=== PATIENT | female | born 1990 | race Caucasian/White ===

== ENCOUNTER 2020-03-31 20:37 | Inpatient (IN) | payer OTHER ==
[2020-03-31] MEDS ORDERED: Zofran 4 MG/2 ML VIAL IV ONE (20:40)
[2020-03-31] MEDS ORDERED: Hydromorphone 1 mg/ml Ampule IV ONE ×2 (20:42→22:04)
[2020-03-31] MEDS ORDERED: PERCOCET TABLET 5/325MG PO STA (20:43)
[2020-03-31] MEDS ORDERED: TORAdol 30 mg Injection IV ONE (20:44)
--- NOTE | 2020-03-31 20:44 | ERPHSYRPT ---
- History of Present Illness Time Seen by Provider: 03/31/20 20:40 Historian: patient, family Exam Limitations: no limitations Patient Subjective Stated Complaint: Chest pain Physician History: The patient is a 29-year-old female with a past medical history significant for recently diagnosed PE earlier today at [facility] who presents with a chief complaint of chest pain. Of note, the patient endorsed having shortness of breath for the last couple days and pleuritic chest pain that started reportedly this morning which prompted her visit to the ED earlier today. She was diagnosed with a pulmonary embolism and discharged after her pain was controlled and prescribed apixaban which she reportedly took 10 mg this evening. Poorly received Dilaudid at the outside hospital ED which relieved her pain and was prescribed Percocet which she has not taken as of yet. According to the who accompanied her in the emergency department she was offered an admission but declined. She was taking control and reportedly had a long car ride from [place] to [place] which I think provoked the PE. The pain is described as a sharp pain located in the left side of her chest that is pleuritic constant and severe. Severity of Pain-Max: severe Severity of Pain-Current: severe Modifying Factors: Improves With: breathing. Worsens With: coughing Associated Symptoms: shortness of breath Aspirin Treatment Today: no aspirin today Allergies/Adverse Reactions: ceftriaxone sodium [From Rocephin] Allergy (Intermediate, Verified 03/31/20 20:39) Blisters meperidine HCl [From Demerol] Allergy (Intermediate, Verified 03/31/20 20:39) Hives topiramate [From Topamax] Adverse Reaction (Verified 03/31/20 20:39) TINGLING IN HANDS Home Medications: Apixaban [Eliquis 2.5 mg Tablet] 10 mg PO BID 04/01/20 [History] Irbesartan 150 mg [Avapro 150 MG] 150 mg PO DAILY 04/01/20 [History] Ketorolac Trometh 60 mg/2Ml [Toradol 60 mg/2 ml] 60 mg IM DAILY PRN 04/01/20 [History] Oxycodone / APAP 10/325 mg [Oxycodone-Acetaminophen 10-325] 1 tab PO Q6H PRN 04/01/20 [History] Tizanidine HCl 4 mg [Zanaflex 4 MG] 4 mg PO BID 04/01/20 [History] Tramadol HCl 50 mg [Ultram 50 mg] 50 mg PO QID 04/01/20 [History] Hx Tetanus, Diphtheria Vaccination/Date Given: Yes Hx Influenza Vaccination/Date Given: Yes Hx Pneumococcal Vaccination/Date Given: No Travel Risk - International Travel Have you traveled outside of the country in past 3 weeks: No - Coronavirus Screening Are you exhibiting any of the following symptoms?: Yes Symptoms: Shortness of Breath (Due to PE) Close contact with a COVID-19 positive Pt in past 14-21 Days: No - Review of Systems Constitutional: No No Symptoms Eyes: No Symptoms Ears, Nose, & Throat: No Symptoms Respiratory: Dyspnea, Dyspnea on Exertion (LUZ), No Cough Cardiac: Chest Pain Abdominal/Gastrointestinal: No Abdominal Pain, No Nausea, No Vomiting Genitourinary Symptoms: No Symptoms Musculoskeletal: No Symptoms Skin: No Symptoms Neurological: No Symptoms Psychological: No Symptoms Endocrine: No Symptoms Hematologic/Lymphatic: No Symptoms Immunological/Allergic: No Symptoms All Other Systems: Reviewed and Negative - Past Medical History Pertinent Past Medical History: Yes Neurological History: Migraines ENT History: No Pertinent History Cardiac History: No Pertinent History Respiratory History: No Pertinent History Endocrine Medical History: No Pertinent History Musculoskeletal History: No Pertinent History GI Medical History: No Pertinent History History: No Pertinent History Psycho-Social History: Anxiety Female Reproductive Disorders: No Pertinent History - Past Surgical History Past Surgical History: Yes Neuro Surgical History: No Pertinent History Cardiac: No Pertinent History Respiratory: No Pertinent History Gastrointestinal: Cholecystectomy Genitourinary: No Pertinent History Musculoskeletal: No Pertinent History Female Surgical History: No Pertinent History Other Surgical History: TONSILLECTOMY AND ADENOIDECTOMY - Social History Smoking Status: Never smoker Exposure to second hand smoke: Yes Drug Use: none Patient Lives Alone: No - Nursing Vital Signs Nursing Vital Signs: Initial Vital Signs Temperature 98.1 F 03/31/20 20:37 Pulse Rate 116 H 03/31/20 20:37 Respiratory Rate 26 H 03/31/20 20:37 Blood Pressure 142/111 03/31/20 20:37 O2 Sat by Pulse Oximetry 97 03/31/20 20:37 Pain Scale Pain Intensity 4 - Physical Exam General Appearance: anxiety, other (The patient was crying and gaurding the left axillary aspect of her chest) Eye Exam: PERRL/EOMI, eyes nml inspection Ears, Nose, Throat Exam: normal ENT inspection Neck Exam: normal inspection, non-tender, supple Respiratory Exam: normal breath sounds, lungs clear, airway intact, diminished breath sounds (Patient was splinting due to pain and did not want to take a deep breath), No chest tenderness, No respiratory distress Cardiovascular Exam: regular rate/rhythm, normal heart sounds, normal peripheral pulses, capillary refill <2 sec, No murmur, No friction rub, No gallop, No tachycardia, No edema Pelvic Exam: not done Rectal Exam: deferred Back Exam: normal inspection, normal range of motion Extremity Exam: normal inspection Neurologic Exam: alert, oriented x 3, cooperative Skin Exam: normal color, warm, dry, No rash, No petechiae SpO2 Interpretation: normal O2 Delivery: Room Air - Course Nursing assessment & vital signs reviewed: Yes EKG Interpreted by Me: RATE, Sinus Rhythm, NORMAL AXIS, NORMAL INTERVALS, NORMAL QRS, Other (No evidence of STEMI or myocardial ischemia or injury pattern) Ordered Tests: Active Orders 24 hr Category Date Time Status Up Ad Kristie TOLERATED Activity 03/31/20 23:35 Active Code Status Order ROUTINE Care 03/31/20 23:35 Active EKG-ER Only STAT Care 03/31/20 20:40 Completed IV Insertion ROUTINE Care 03/31/20 23:[address] in Observation ROUTINE Care 03/31/20 23:35 Active Pulse Oximetry (ED) STAT Care 03/31/20 20:40 Completed House Regular Diet Diet 03/31/20 Breakfast Active BMP AM.LAB Lab 04/01/20 04:00 Ordered BMP Stat Lab 03/31/20 21:03 Completed CBC AM.LAB Lab 04/01/20 04:00 Ordered CBC W DIFF Stat Lab 03/31/20 21:03 Completed NT PRO BNP Routine Lab 03/31/20 21:03 Completed TROPONIN Q3H Lab 03/31/20 21:03 Completed Pulse Oximetry ROUTINE RT 03/31/20 23:35 Active Medication Summary Generic Name Dose Route Start Last Admin Trade Name Freq PRN Reason Stop Dose Admin Apixaban 10 mg 04/01/20 10:00 Eliquis 2.5 Mg Tablet PO 05/01/20 09:59 BID YADIRA Hydromorphone HCl 0.5 mg 03/31/20 23:35 Hydromorphone 1 Mg/Ml Ampule IV 04/05/20 23:34 STAT PRN PAIN Hydromorphone HCl 0.5 mg 04/01/20 00:20 04/01/20 00:42 Dilaudid 2 Mg Injection IV 04/06/20 00:19 0.5 mg Q2H PRN Administration PAIN Hydromorphone HCl 1 mg 04/01/20 00:55 Dilaudid 2 Mg Injection IV 04/06/20 00:54 Q2H PRN PAIN Hydromorphone HCl 0.5 mg 04/01/20 00:55 04/01/20 01:06 Dilaudid 2 Mg Injection IV 04/01/20 00:56 0.5 mg STAT STA Administration Oxycodone/Acetaminophen 2 tab 03/31/20 23:35 Percocet Tablet 5/325mg PO 04/05/20 23:34 Q6H PRN PRN PAIN Discontinued Medications Generic Name Dose Route Start Last Admin Trade Name Freq PRN Reason Stop Dose Admin Hydromorphone HCl 1 mg 03/31/20 20:42 03/31/20 20:48 Hydromorphone 1 Mg/Ml Ampule IV 03/31/20 20:43 1 mg STAT ONE Administration Hydromorphone HCl Confirm 03/31/20 20:47 Hydromorphone 1 Mg/Ml Ampule Administered 03/31/20 20:48 Dose 1 mg .ROUTE .STK-MED ONE Hydromorphone HCl 0.5 mg 03/31/20 22:04 03/31/20 22:41 Hydromorphone 1 Mg/Ml Ampule IV 03/31/20 22:05 0.5 mg STAT ONE Administration Hydromorphone HCl Confirm 03/31/20 22:39 Hydromorphone 1 Mg/Ml Ampule Administered 03/31/20 22:40 Dose 1 mg .ROUTE .STK-MED ONE Ketorolac Tromethamine 15 mg 03/31/20 20:44 03/31/20 20:47 Toradol 30 Mg Injection IV 03/31/20 20:45 15 mg STAT ONE Administration Ketorolac Tromethamine Confirm 03/31/20 20:46 Toradol 30 Mg Injection Administered 03/31/20 20:47 Dose 30 mg .ROUTE .STK-MED ONE Ondansetron HCl 4 mg 03/31/20 20:40 03/31/20 20:47 Zofran 4 Mg/2 Ml Vial IV 03/31/20 20:41 4 mg STAT ONE Administration Ondansetron HCl Confirm 03/31/20 20:46 Zofran 4 Mg/2 Ml Vial Administered 03/31/20 20:47 Dose 4 mg .ROUTE .STK-MED ONE Oxycodone/Acetaminophen 1 tab 03/31/20 20:43 03/31/20 20:48 Percocet Tablet 5/325mg PO 03/31/20 20:44 1 tab STAT STA Administration Oxycodone/Acetaminophen Confirm 03/31/20 20:46 Percocet Tablet 5/325mg Administered 03/31/20 20:47 Dose 1 tab .ROUTE .STK-MED ONE Lab/Rad Data: Laboratory Result Diagrams 03/31/20 21:03 03/31/20 21:03 Laboratory Results 03/31/20 03/31/20 03/31/20 Range/Units 21:03 21:03 21:03 WBC 17.6 H (4.0-10.5) K/mm3 RBC 4.82 (4.1-5.4) M/mm3 Hgb 13.1 (12.0-16.0) gm/dl Hct 41.7 (35-47) % MCV 86.5 (78-100) fl MCH 27.2 (26-32) pg MCHC 31.4 L (32-36) g/dl RDW 12.6 (11.5-14.0) % Plt Count 273 (150-450) K/mm3 MPV 10.7 (7.5-11.0) fl Gran % 76.1 H (36.0-66.0) % Eos # (Auto) 0.53 H (0-0.5) Absolute Lymphs (auto) 2.23 (1.0-4.6) Absolute Monos (auto) 1.42 H (0.0-1.3) Lymphocytes % 12.6 L (24.0-44.0) % Monocytes % 8.1 (0.0-12.0) % Eosinophils % 3.0 (0.00-5.0) % Basophils % 0.2 (0.0-0.4) % Absolute Granulocytes 13.41 H (1.4-6.9) Basophils # 0.04 (0-0.4) Sodium 137 (137-145) mmol/L Potassium 3.8 (3.5-5.1) mmol/L Chloride 102 (98-107) mmol/L Carbon Dioxide 25 (22-30) mmol/L Anion Gap 13.7 (5-15) MEQ/L BUN 14 (7-17) mg/dL Creatinine 0.68 (0.52-1.04) mg/dL Estimated GFR > 60.0 ML/MIN Glucose 115 H (74-106) mg/dL Calcium 9.5 (8.4-10.2) mg/dL Troponin I < 0.012 (0.000-0.034) ng/mL NT-Pro-B Natriuret Pep 179 (0-450) pg/mL - Progress Progress: improved Air Movement: good Progress Note: 03/31/20 21:46 Patient was reassessed to find that the pain medicines were making her much more comfortable and she was no longer tearful and able to participate in the HPI. Also, records are currently being faxed to and from [facility] which I am currently reviewing at this time. It appears she had a chest x-ray earlier today of the ribs and showed no evidence of a displaced rib fracture or pneumothorax. She underwent a CTA of her chest that demonstrated bilateral pulmonary emboli with evidence of infarction into the left lower lobe of her lung which is the greatest source of discomfort currently. It appears that she had a total of 2 mg of Dilaudid and 30 mg of Toradol and a milligram of lorazepam during her ED visit. Laboratory work-up was relatively benign and the patient appear to have an elevated d-dimer in addition to a negative test. Platelet count was 262 and her hemoglobin was noted to be 14.5 with a white blood cell count of 16.5. It appears that the patient was p rescribed apixaban and instructed to take 10 mg twice a day for 7 days and then 5 mg twice a day thereafter and she was prescribed Percocet 10/325 mg tablets and instructed to take 1 tablet every 6 hours as needed. The discharge diagnosis was pulmonary embolism with infarction. It was also noted the patient has some unspecified chronic pain syndrome. 03/31/20 21:[address] Coats now for admission for pain control. 04/01/20 02:16 The patient was admitted for observation for pain control. She does not meet modified Hestia criteria due to uncontrolled pain. Otherwise, she does not have a massive of submassive PE and her EKG showed no evidence of R heart strain. Remaining laboratory workup with reassuring cardiac markers as well. I suspected she can be discharged home once her pain is controlled with instructions to continue to apixaban and PCP f/u for her what is believed to be a provoked PE likely from a DVT of her lower extremity due to immobility/recent travel and being on OCP. Blood Culture(s) Obtained: No Antibiotics given: No Discussed with DrSherin: Other (Dr. Coats) Will see patient in: hospital (observation) (Dr. Coats accepted patient for observation admission for pain control) Counseled pt/family regarding: lab results, diagnosis - Departure Departure Disposition: Observation Clinical Impression: Bilateral pulmonary embolism, Pulmonary infarction Condition: Stable Critical Care Time: No
[2020-03-31] MEDS ORDERED: Zofran 4 MG/2 ML VIAL ONE (20:46)
[2020-03-31] MEDS ORDERED: PERCOCET TABLET 5/325MG ONE (20:46)
[2020-03-31] MEDS ORDERED: TORAdol 30 mg Injection ONE (20:46)
[2020-03-31] MEDS ORDERED: Hydromorphone 1 mg/ml Ampule ONE ×2 (20:47→22:39)
[2020-03-31 21:08] LABS: Absolute Neutrophil Ct (ANC) 13.41 (1.4-6.9); BASOPHIL % 0.2 % (0.0-0.4); Basophil (Absolute #) 0.04 (0-0.4); Eosinophil (Absolute #) 0.53 (0-0.5); Hematocrit 41.7 % (35-47); Hemoglobin 13.1 gm/dl (12.0-16.0); Lymphocyte (Absolute #) 2.23 (1.0-4.6); Lymphocytes % 12.6 % (24.0-44.0); Mean Cell Volume 86.5 fl (78-100); Mean Corpuscular Hemoglobin 27.2 pg (26-32); Mean Corpuscular Hgb Concent. 31.4 g/dl (32-36); Mean Platelet Volume 10.7 fl (7.5-11.0); Monocyte (Absolute #) 1.42 (0.0-1.3); Monocytes % 8.1 % (0.0-12.0); Neutrophil % 76.1 % (36.0-66.0); Platelet Count 273 K/mm3 (150-450); Red Blood Count 4.82 M/mm3 (4.1-5.4); Red Cell Distribution Width 12.6 % (11.5-14.0); White Blood Count 17.6 K/mm3 (4.0-10.5)
[2020-03-31 21:30] LABS: ANION GAP 13.7 MEQ/L (5-15); BLOOD UREA NITROGEN 14 mg/dL (7-17); CHLORIDE 102 mmol/L (98-107); Calcium 9.5 mg/dL (8.4-10.2); Carbon Dioxide 25 mmol/L (22-30); Creatinine 1 0.68 mg/dL (0.52-1.04); EST GLOMERULAR FILTRATION RATE > 60.0 ML/MIN; Glucose 115 mg/dL (74-106); Potassium 3.8 mmol/L (3.5-5.1); SODIUM 137 mmol/L (137-145)
[2020-03-31 21:42] LABS: NT PRO BNP 179 pg/mL (0-450)
[2020-03-31 21:59] LABS: TROPONIN < 0.012 ng/mL (0.000-0.034)
[2020-03-31] MEDS ORDERED: Hydromorphone 1 mg/ml Ampule IV PRN (23:35)
[2020-03-31] MEDS ORDERED: PERCOCET TABLET 5/325MG PO PRN (23:35)
[2020-04-01] MEDS ORDERED: DILAUDID 2 MG INJECTION IV PRN (00:20)
[2020-04-01] MEDS ORDERED: DILAUDID 2 MG INJECTION IV STA (00:55)
[2020-04-01] MEDS: DILAUDID 2 MG INJECTION IV PRN ×4 (02:43→09:44)
[2020-04-01] MEDS ORDERED: TORAdol 30 mg Injection IV ONE (06:02)
[2020-04-01] MEDS ORDERED: DILAUDID 2 MG INJECTION IV ONE (06:18)
[2020-04-01] MEDS ORDERED: Zithromax 500 MG/ 250 ML NaCl Premix 500 MG/250 ML IVPB IV SCH (07:00)
[2020-04-01] MEDS: Zofran 4 MG/2 ML VIAL IV PRN ×3 (08:41→22:12)
[2020-04-01 09:28] LABS: Hemoglobin 11.3 gm/dl (12.0-16.0); Mean Cell Volume 88.7 fl (78-100); Mean Corpuscular Hemoglobin 27.1 pg (26-32); Mean Corpuscular Hgb Concent. 30.5 g/dl (32-36); Mean Platelet Volume 10.5 fl (7.5-11.0); Platelet Count 227 K/mm3 (150-450); Red Blood Count 4.17 M/mm3 (4.1-5.4); Red Cell Distribution Width 12.3 % (11.5-14.0); White Blood Count 13.4 K/mm3 (4.0-10.5)
[2020-04-01 09:34] LABS: ANION GAP 11.8 MEQ/L (5-15); BLOOD UREA NITROGEN 13 mg/dL (7-17); CHLORIDE 103 mmol/L (98-107); Calcium 8.9 mg/dL (8.4-10.2); Carbon Dioxide 26 mmol/L (22-30); Creatinine 1 0.57 mg/dL (0.52-1.04); EST GLOMERULAR FILTRATION RATE > 60.0 ML/MIN; Glucose 104 mg/dL (74-106); Potassium 4.2 mmol/L (3.5-5.1); SODIUM 136 mmol/L (137-145)
--- NOTE | 2020-04-01 09:36 | PCM.HP ---
History of Present Illness - Chief Complaint Chief Complaint: Bilateral Pulmonary Embolism, Pulmonary infarction, chiari malformation Date: 04/01/20 History of Present Illness: is a 29 year old female. Presented to ER with severe Left lower chest pain, noted she drove from [place] 3 weeks ago and hit shoulder on door fram 2 weeks ago, yesterday pain too severe, initially went to [facility] and diagnosis established admission offered but declined, as patient thought she could handle the pain at home, she failed and presented to ER at [place]. - Review of Systems Constitutional: No Fever, No Chills Eyes: No Symptoms Ears, Nose, & Throat: No Symptoms Respiratory: Short Of Breath Cardiac: Chest Pain (left lower chest) Abdominal/Gastrointestinal: No Abdominal Pain, No Nausea, No Vomiting, No Diarrhea Genitourinary Symptoms: No Dysuria Musculoskeletal: No Back Pain, No Neck Pain Skin: No Rash Neurological: No Dizziness, No Focal Weakness, No Sensory Changes Psychological: No Symptoms Endocrine: No Symptoms Hematologic/Lymphatic: No Symptoms Immunological/Allergic: No Symptoms Medications & Allergies Home Medications: Home Medication List Apixaban [Eliquis 2.5 mg Tablet] 10 mg PO BID 04/01/20 [History Confirmed 04/01/20] Irbesartan 150 mg [Avapro 150 MG] 150 mg PO DAILY 04/01/20 [History Confirmed 04/01/20] Ketorolac Trometh 60 mg/2Ml [Toradol 60 mg/2 ml] 60 mg IM DAILY PRN 04/01/20 [History Confirmed 04/01/20] Oxycodone / APAP 10/325 mg [Oxycodone-Acetaminophen 10-325] 1 tab PO Q6H PRN 04/01/20 [History Confirmed 04/01/20] Tizanidine HCl 4 mg [Zanaflex 4 MG] 4 mg PO BID 04/01/20 [History Confirmed 04/01/20] Tramadol HCl 50 mg [Ultram 50 mg] 50 mg PO QID 04/01/20 [History Confirmed 04/01/20] Allergies/Adverse Reactions: Allergies Allergy/AdvReac Type Severity Reaction Status Date / Time ceftriaxone sodium Allergy Intermediate Blisters Verified 03/31/20 20:39 [From Rocephin] meperidine HCl [From Demerol] Allergy Intermediate Hives Verified 03/31/20 20:39 topiramate [From Topamax] AdvReac Verified 03/31/20 20:39 - Past Medical History Past Medical History: Yes Neurological History: Migraines ENT History: No Pertinent History Cardiac History: No Pertinent History Respiratory History: No Pertinent History Endocrine Medical History: No Pertinent History Musculoskelatal History: No Pertinent History GI Medical History: No Pertinent History History: No Pertinent History Pyscho-Social History: Anxiety Reproductive Disorders: No Pertinent History Comment: Chiari Malformation - Female History Hx Last Menstrual Period: 03/11/20 Are you now?: No - Past Surgical History Past Surgical History: Yes Neuro Surgical History: No Pertinent History Cardiac History: No Pertinent History Respiratory Surgery: No Pertinent History GI Surgical History: Cholecystectomy Genitourinary Surgical Hx: No Pertinent History Musculskeletal Surgical Hx: No Pertinent History Female Surgical History: No Pertinent History Other Surgical History: TONSILLECTOMY AND ADENOIDECTOMY - Social History Smoking Status: Never smoker Exposure to second hand smoke: Yes Alcohol: Occasionally Drug Use: none - Physical Exam Vital Signs: Vital Signs - 24 hr Temp Pulse Pulse Resp BP Pulse Ox 04/01/20 08:00 20 04/01/20 07:54 98.7 F 91 H 20 145/83 100 04/01/20 04:00 98.2 F 110 H 22 98 04/01/20 00:37 93 L 03/31/20 23:36 85 20 109/58 99 03/31/20 23:00 100 H 110/67 97 03/31/20 22:00 78 20 101/58 96 03/31/20 21:37 76 20 130/72 96 03/31/20 20:40 97 03/31/20 20:37 98.1 F 115 H 116 H 26 H 142/111 97 General Appearance: no apparent distress, alert Neurologic Exam: alert, oriented x 3, cooperative, normal mood/affect, nml cerebellar function, nml station & gait, sensation nml, No motor deficits Eye Exam: PERRL/EOMI, eyes nml inspection Ears, Nose, Throat Exam: normal ENT inspection, TMs normal, pharynx normal, moist mucous membranes Neck Exam: normal inspection, non-tender, supple, full range of motion Respiratory Exam: normal breath sounds, chest tenderness (Left chest, lower greater than upper), lungs clear, No respiratory distress Cardiovascular Exam: regular rate/rhythm, normal heart sounds, normal peripheral pulses Gastrointestinal/Abdomen Exam: soft, normal bowel sounds, No tenderness, No mass Back Exam: normal inspection, normal range of motion, No CVA tenderness, No vertebral tenderness Extremity Exam: normal inspection, normal range of motion, pelvis stable Skin Exam: normal color, warm, dry, No rash Lymphatic Exam: No adenopathy Results - Labs Lab/Micro Results: Lab Results-Last 24 Hours 03/31/20 03/31/20 03/31/20 Range/Units 21:03 21:03 21:03 WBC 17.6 H (4.0-10.5) K/mm3 RBC 4.82 (4.1-5.4) M/mm3 Hgb 13.1 (12.0-16.0) gm/dl Hct 41.7 (35-47) % MCV 86.5 (78-100) fl MCH 27.2 (26-32) pg MCHC 31.4 L (32-36) g/dl RDW 12.6 (11.5-14.0) % Plt Count 273 (150-450) K/mm3 MPV 10.7 (7.5-11.0) fl Gran % 76.1 H (36.0-66.0) % Eos # (Auto) 0.53 H (0-0.5) Absolute Lymphs (auto) 2.23 (1.0-4.6) Absolute Monos (auto) 1.42 H (0.0-1.3) Lymphocytes % 12.6 L (24.0-44.0) % Monocytes % 8.1 (0.0-12.0) % Eosinophils % 3.0 (0.00-5.0) % Basophils % 0.2 (0.0-0.4) % Absolute Granulocytes 13.41 H (1.4-6.9) Basophils # 0.04 (0-0.4) Sodium 137 (137-145) mmol/L Potassium 3.8 (3.5-5.1) mmol/L Chloride 102 (98-107) mmol/L Carbon Dioxide 25 (22-30) mmol/L Anion Gap 13.7 (5-15) MEQ/L BUN 14 (7-17) mg/dL Creatinine 0.68 (0.52-1.04) mg/dL Estimated GFR > 60.0 ML/MIN Glucose 115 H (74-106) mg/dL Calcium 9.5 (8.4-10.2) mg/dL Troponin I < 0.012 (0.000-0.034) ng/mL NT-Pro-B Natriuret Pep 179 (0-450) pg/mL Assessment/Plan (1) Bilateral pulmonary embolism Current Visit: Yes Status: Acute Assessment & Plan: will place on lovenox while in hospital, vitals remain stable Code(s): I26.99 - OTHER PULMONARY EMBOLISM WITHOUT ACUTE COR PULMONALE (2) Pulmonary infarction Current Visit: Yes Status: Acute Assessment & Plan: Will cover for possible infection, but likely secondary to PE, vitals stable will continue to work on pain control Code(s): I26.99 - OTHER PULMONARY EMBOLISM WITHOUT ACUTE COR PULMONALE
[2020-04-01] MEDS ORDERED: ELIQUIS 2.5 MG TABLET PO SCH (10:00)
[2020-04-01] MEDS: Sodium Chloride 0.9% 1000 ML 1,000 ML IV SCH (10:09)
[2020-04-01] MEDS: DILAUDID 1 MG/1ML PCA IV PRN (10:09)
[2020-04-01] MEDS ORDERED: [UNRECOGNIZED DRUG - OTHER] IM PRN (10:38)
[2020-04-01] MEDS ORDERED: TORAdol 30 mg Injection IM PRN (10:39)
[2020-04-01] MEDS: OXYCODONE-ACETAMINOPHEN 10-325 PO SCH ×3 (11:09→20:23)
[2020-04-01] MEDS ORDERED: Ativan 2 MG/1 ML VIAL IV ONE (11:13)
[2020-04-01] MEDS ORDERED: Ativan 2 MG/1 ML VIAL IV PRN (11:13)
[2020-04-01] MEDS ORDERED: Narcan 0.4 MG/ML IV PRN (11:24)
[2020-04-01] MEDS: ULTRAM 50 MG PO SCH ×3 (13:07→22:12)
[2020-04-01] MEDS: Zanaflex 4 MG PO SCH ×2 (13:08→22:12)
[2020-04-01] MEDS: Avapro 150 MG PO SCH (13:08)
[2020-04-01] MEDS: Ativan 2 MG/1 ML VIAL IV PRN ×2 (15:04→22:13)
[2020-04-01] MEDS: ENOXAPARIN SODIUM SQ SCH (22:12)
--- NOTE | 2020-04-01 22:13 | XRAY ---
Indication: Left chest pain. Known pulmonary emboli. Multiple contiguous axial images obtained through the chest using 100 cc SUV 370 contrast and PE protocol. Comparison: None There is good opacification of the pulmonary arteries to include the lobar and segmental branches. Nonoccluding pulmonary emboli seen in both lower lobe branches. Additional tiny nonoccluding pulmonary emboli seen in the right upper lobe. Heart is not enlarged. Aorta is normal in course and caliber. Lungs demonstrates left lower lobe mixed groundglass and consolidating airspace disease with small effusion. Also right middle/lower lobe subsegmental atelectasis/scarring and left upper lobe calcified granuloma. Bony thorax intact. Limited upper abdomen unremarkable. Impression: 1. Nonoccluding bilateral pulmonary emboli as detailed. 2. Left lower lobe mixed groundglass and consolidating airspace disease with small effusion. Comment: Preliminary interpretation was made by [facility]. No critical discrepancy.
[2020-04-02] MEDS: OXYCODONE-ACETAMINOPHEN 10-325 PO SCH ×6 (00:56→19:55)
[2020-04-02] MEDS: Ativan 2 MG/1 ML VIAL IV PRN ×7 (01:52→20:44)
[2020-04-02] MEDS: DILAUDID 1 MG/1ML PCA IV PRN ×2 (05:34→17:09)
[2020-04-02] MEDS: Sodium Chloride 0.9% 1000 ML 1,000 ML IV SCH (06:24)
--- NOTE | 2020-04-02 09:15 | PCM.NOTE ---
Date and Time: 04/02/20911 Subjective Assessment: Pt. still having a lot of pain, still better with sedation, but forgets to push [employer], discussed with fiance to not press this button as this is a safety mechanism to prevent overdose, he voiced understanding. - Review of Systems Constitutional: No Fever, No Chills Eyes: No Symptoms Ears, Nose, & Throat: No Symptoms Respiratory: Short Of Breath, No Cough Cardiac: Chest Pain, No Edema, No Syncope Abdominal/Gastrointestinal: No Abdominal Pain, No Nausea, No Vomiting, No Diarrhea Genitourinary Symptoms: No Dysuria Musculoskeletal: No Back Pain, No Neck Pain Skin: No Rash Neurological: No Dizziness, No Focal Weakness, No Sensory Changes Psychological: No Symptoms Endocrine: No Symptoms Hematologic/Lymphatic: No Symptoms Immunological/Allergic: No Symptoms Objective Exam General Appearance: no apparent distress Neurologic Exam: cooperative (sedation noted but mild) Skin Exam: normal color, warm, dry, No rash Eye Exam: EOMI Neck Exam: normal inspection Lymphatic Exam: No adenopathy Respiratory Exam: normal breath sounds, chest tenderness, lungs clear Cardiovascular Exam: regular rate/rhythm, normal heart sounds Gastrointestinal/Abdomen Exam: soft Extremity Exam: normal inspection OBJECTIVE DATA Vital Signs: Vital Signs - 24 hr Temp Pulse Resp BP Pulse Ox 04/02/20 08:08 96 04/02/20 07:43 98.8 F 88 20 121/57 89 L 04/02/20 05:34 94 L 04/02/20 05:32 87 L 04/02/20 04:00 99.0 F 85 22 128/66 94 L 04/02/20 00:00 97.7 F 76 20 118/65 94 L 04/01/20 20:00 98.1 F 87 18 124/76 95 04/01/20 19:35 92 L 04/01/20 18:10 99.2 F 99 H 24 133/66 92 L 04/01/20 16:00 36 H 04/01/20 14:47 96 04/01/20 14:09 91 L 04/01/20 12:00 20 170/90 Oxygen-Last 24 hours Oxygen Flowrate (L/min)-RT 3 Pain Assessment - Last Documented Pain Intensity 10 Pain Scale Used 0-10 Pain Scale Intake and Output: Intake & Output 03/30/20 03/31/20 04/01/20 04/02/20 11:59 11:59 11:59 11:59 Intake Total 120 2645 Output Total 2 Balance 120 2643 Weight 81.7 kg Lab Results: Lab Results-Last 24 Hours 04/01/20 04/01/20 04/01/20 Range/Units 08:30 08:30 15:32 WBC 13.4 H (4.0-10.5) K/mm3 RBC 4.17 (4.1-5.4) M/mm3 Hgb 11.3 L (12.0-16.0) gm/dl Hct 37.0 (35-47) % MCV 88.7 (78-100) fl MCH 27.1 (26-32) pg MCHC 30.5 L (32-36) g/dl RDW 12.3 (11.5-14.0) % Plt Count 227 (150-450) K/mm3 MPV 10.5 (7.5-11.0) fl Sodium 136 L (137-145) mmol/L Potassium 4.2 (3.5-5.1) mmol/L Chloride 103 (98-107) mmol/L Carbon Dioxide 26 (22-30) mmol/L Anion Gap 11.8 (5-15) MEQ/L BUN 13 (7-17) mg/dL Creatinine 0.57 (0.52-1.04) mg/dL Estimated GFR > 60.0 ML/MIN Glucose 104 (74-106) mg/dL Calcium 8.9 (8.4-10.2) mg/dL Troponin I < 0.012 (0.000-0.034) ng/mL Serum , Qual (Negative) 04/01/20 Range/Units 18:03 WBC (4.0-10.5) K/mm3 RBC (4.1-5.4) M/mm3 Hgb (12.0-16.0) gm/dl Hct (35-47) % MCV (78-100) fl MCH (26-32) pg MCHC (32-36) g/dl RDW (11.5-14.0) % Plt Count (150-450) K/mm3 MPV (7.5-11.0) fl Sodium (137-145) mmol/L Potassium (3.5-5.1) mmol/L Chloride (98-107) mmol/L Carbon Dioxide (22-30) mmol/L Anion Gap (5-15) MEQ/L BUN (7-17) mg/dL Creatinine (0.52-1.04) mg/dL Estimated GFR ML/MIN Glucose (74-106) mg/dL Calcium (8.4-10.2) mg/dL Troponin I (0.000-0.034) ng/mL Serum , Qual NEGATIVE (Negative) Radiology Exams: Radiology Procedures Category Date Time Status CHEST WITH CONTRAST [CT] Stat Exams 04/01/20 16:16 Completed ECHO W/2D AND DOPPLER [US] Routine Exams 04/03/20 08:00 Ordered Multi-Disciplinary Progress Notes: Multi-Disciplinary Progress Notes 04/02/20 05:36 Respiratory Note by Brandon Moran CALLED TO STATE PT SATS WERE IN THE MID TO HIGH 80'S AND WOULD FLUCTUATE. PT IN A LOT OF PAIN AND HAS HIGH ANXIETY DUE TO PAIN. PLACED PT ON 3LPM TO MAINTIAN SATS AND ENCOURAGED DEEP BREATHING. PT SATS CAME UP TO 94% ON 3LPM. Initialized on 04/02/20 05:36 - END OF NOTE Assessment/Plan (1) Bilateral pulmonary embolism Current Visit: Yes Status: Acute Assessment & Plan: continue lovenox while in the hospital Code(s): I26.99 - OTHER PULMONARY EMBOLISM WITHOUT ACUTE COR PULMONALE (2) Pulmonary infarction Current Visit: Yes Status: Acute Assessment & Plan: Continue sedation and pain management, will add IS, CT yesterday no change from prior ct, will continue iv abx Code(s): I26.99 - OTHER PULMONARY EMBOLISM WITHOUT ACUTE COR PULMONALE
[2020-04-02] MEDS: Zanaflex 4 MG PO SCH ×2 (10:53→20:45)
[2020-04-02] MEDS: Zithromax 500 MG/ 250 ML NaCl Premix 500 MG/250 ML IVPB IV SCH (10:53)
[2020-04-02] MEDS: ENOXAPARIN SODIUM SQ SCH ×2 (10:53→20:45)
[2020-04-02] MEDS: Avapro 150 MG PO SCH (11:11)
[2020-04-02] MEDS: ULTRAM 50 MG PO SCH ×3 (11:12→17:38)
[2020-04-02] MEDS: Zofran 4 MG/2 ML VIAL IV PRN (13:58)
[2020-04-03] MEDS: OXYCODONE-ACETAMINOPHEN 10-325 PO SCH ×6 (00:01→20:57)
[2020-04-03] MEDS: Ativan 2 MG/1 ML VIAL IV PRN ×4 (00:07→19:58)
[2020-04-03] MEDS: ULTRAM 50 MG PO SCH ×5 (04:08→22:26)
[2020-04-03] MEDS: Sodium Chloride 0.9% 1000 ML 1,000 ML IV SCH ×2 (04:18→22:23)
[2020-04-03] MEDS: Zanaflex 4 MG PO SCH ×2 (09:24→22:18)
[2020-04-03] MEDS: Avapro 150 MG PO SCH (09:24)
[2020-04-03] MEDS: Zithromax 500 MG/ 250 ML NaCl Premix 500 MG/250 ML IVPB IV SCH (09:25)
[2020-04-03] MEDS: Zofran 4 MG/2 ML VIAL IV PRN ×2 (09:26→16:55)
[2020-04-03] MEDS: ENOXAPARIN SODIUM SQ SCH ×2 (10:28→22:18)
--- NOTE | 2020-04-03 12:13 | PCM.NOTE ---
Date and Time: 04/03/20 1210 Subjective Assessment: Pt. improving noting pain still there but now wanting to wean down the pain medication. - Review of Systems Constitutional: No Fever, No Chills Eyes: No Symptoms Ears, Nose, & Throat: No Symptoms Respiratory: No Cough, No Short Of Breath Cardiac: Chest Pain, No Edema, No Syncope Abdominal/Gastrointestinal: No Abdominal Pain, No Nausea, No Vomiting, No Diarrhea Genitourinary Symptoms: No Dysuria Musculoskeletal: No Back Pain, No Neck Pain Skin: No Rash Neurological: No Dizziness, No Focal Weakness, No Sensory Changes Psychological: No Symptoms Endocrine: No Symptoms Hematologic/Lymphatic: No Symptoms Immunological/Allergic: No Symptoms Objective Exam General Appearance: no apparent distress Neurologic Exam: alert, cooperative Skin Exam: normal color, warm, dry, No rash Eye Exam: EOMI Respiratory Exam: normal breath sounds, chest tenderness Cardiovascular Exam: regular rate/rhythm OBJECTIVE DATA Vital Signs: Vital Signs - 24 hr Temp Pulse Resp BP Pulse Ox 04/03/20 08:00 20 04/03/20 07:35 93 L 04/03/20 07:07 96 04/03/20 07:00 98.3 F 96 H 20 151/81 93 L 04/03/20 03:51 16 04/03/20 03:00 95 04/03/20 00:00 18 04/02/20 23:00 98.6 F 91 H 18 129/76 91 L 04/02/20 21:09 94 L 04/02/20 20:00 24 04/02/20 19:55 93 L 04/02/20 19:00 98.0 F 80 18 126/68 92 L 04/02/20 17:34 93 L 04/02/20 17:09 94 L 04/02/20 16:00 18 04/02/20 14:00 98.9 F 81 20 101/51 94 L 04/02/20 13:34 96 Oxygen-Last 24 hours Oxygen Flowrate (L/min)-RT 3 Pain Assessment - Last Documented Pain Intensity 4 Pain Scale Used 0-10 Pain Scale Intake and Output: Intake & Output 04/01/20 04/02/20 04/03/20 04/04/20 11:59 11:59 11:59 11:59 Intake Total 120 2885 1770 Output Total 2 Balance 120 2883 1770 Weight 81.7 kg Radiology Exams: Radiology Procedures Category Date Time Status CHEST WITH CONTRAST [CT] Stat Exams 04/01/20 16:16 Completed ECHO W/2D AND DOPPLER [US] Routine Exams 04/03/20 08:00 Taken Multi-Disciplinary Progress Notes: Multi-Disciplinary Progress Notes 04/02/20 17:02 Case Management Note by Jane Dee DISCHARGE PLAN REVIEWED. PT NORMALLY LIVES HOME WITH HER FAMILY AND IS INDEPENDENT OF ALL ADL'S. PLAN TO RETURN HOME IN PRE EPISODIC CONDITION. WILL CONTINUE TO MONITOR FOR ALL D/C NEEDS. Initialized on 04/02/20 17:02 - END OF NOTE Assessment/Plan (1) Bilateral pulmonary embolism Current Visit: Yes Status: Acute Assessment & Plan: Continue lovenox Code(s): I26.99 - OTHER PULMONARY EMBOLISM WITHOUT ACUTE COR PULMONALE (2) Pulmonary infarction Current Visit: Yes Status: Acute Assessment & Plan: wean pain management, ECHO shows no sign of right heart strain Code(s): I26.99 - OTHER PULMONARY EMBOLISM WITHOUT ACUTE COR PULMONALE
[2020-04-03] MEDS: DILAUDID 1 MG/1ML PCA IV PRN (19:02)
[2020-04-04] MEDS: OXYCODONE-ACETAMINOPHEN 10-325 PO SCH ×5 (03:02→16:05)
[2020-04-04] MEDS: Zofran 4 MG/2 ML VIAL IV PRN (09:53)
[2020-04-04] MEDS: Zithromax 500 MG/ 250 ML NaCl Premix 500 MG/250 ML IVPB IV SCH (09:53)
[2020-04-04] MEDS: ENOXAPARIN SODIUM SQ SCH (09:53)
[2020-04-04] MEDS: Avapro 150 MG PO SCH (09:54)
[2020-04-04] MEDS: Zanaflex 4 MG PO SCH (09:54)
[2020-04-04] MEDS: DILAUDID 1 MG/1ML PCA IV PRN (11:25)
[2020-04-04] MEDS: ULTRAM 50 MG PO SCH ×2 (11:31→14:43)
[2020-04-04 16:47] VITALS: BP 169/90; PULSE 78; O2SAT 97
== END 2020-04-04 17:17 | disposition home or self-care (01) | DRG 176 ==
LOC: ED 20:37 → MED SURG 23:34 → OBSVTOIN 04-01 09:31 → INTOOBSV 04-01 21:31
PROVIDERS: ADMIT Family Medicine; ATTEND Family Medicine
DX: I26.99 Other pulmonary embolism without acute cor pulmonale (principal); Z79.899 Other long term (current) drug therapy
CPT/HCPCS: 36415; 71260; 80048; 81025; 83880; 84484; 85025; 85027; 93005; 93306; 94760; 94762; 96374; 96375; 96376; 99284; G0378; J0456; J1170; J1650; J1885; J2060; J2405; A9270-GY